=== PATIENT | female | born 1970 | race Two or more races ===

== ENCOUNTER 2020-11-19 10:27 | Day surgery (SDC) | payer OTHER ==
[~2020-11-19] VITALS: Ht 152.4 cm; Wt 113.4 kg
[~2020-11-19 10:27] MED LIST: HYZAAR 50-12.1 UDTAB PO; PRILOSEC10 MG PO
[2020-11-19] MEDS ORDERED: MELOXICAM7.5 MG PO (21:03)
[2020-11-19] MEDS ORDERED: TAMS0.4C PO (21:03)
[2020-11-19] MEDS ORDERED: LEVOFLOXACIN500 MG PO (21:04)
[2020-11-19] MEDS ORDERED: PYRIDIUM200 MG PO (21:05)
[2020-11-22] MEDS ORDERED: HYZAAR 100-251 EACH PO (15:10)
[2020-11-22] MEDS ORDERED: LEVOXYL50 MCG (15:11)
== END 2020-11-20 02:50 | disposition home or self-care (01) ==
LOC: ER 10:27 → CIR.AMB 18:47
PROVIDERS: ATTEND Surgery
DX: N20.1 Calculus of ureter (principal); Z20.822 Contact with and (suspected) exposure to COVID-19

== ENCOUNTER 2020-11-26 06:20 | Day surgery (SDC) | payer OTHER ==
[~2020-11-26 06:20] MED LIST changes: +HYZAAR 100-251 EACH PO; +LEVOFLOXACIN500 MG PO; +LEVOXYL50 MCG; +MELOXICAM7.5 MG PO; +PYRIDIUM200 MG PO; +TAMS0.4C PO
[2020-11-26] MEDS ORDERED: LEVOFLOXACIN500 MG PO (11:55)
[2020-11-26] MEDS ORDERED: MELOXICAM7.5 MG PO (11:55)
[2020-11-26] MEDS ORDERED: TAMS0.4C PO (11:55)
== END 2020-11-26 16:45 | disposition home or self-care (01) ==
LOC: CIR.AMB 06:20
PROVIDERS: ATTEND Surgery
DX: N20.1 Calculus of ureter (principal); Z20.822 Contact with and (suspected) exposure to COVID-19

== ENCOUNTER 2021-09-10 11:11 | Emergency (ER) | payer OTHER ==
[~2021-09-10] VITALS: Ht 154.9 cm; Wt 111.1 kg
[2021-09-10] MEDS ORDERED: SINGULAIR 10MG10 MG PO (11:33)
[2021-09-10] MEDS ORDERED: TOPROL XL25 M1 PO (11:33)
[2021-09-10] MEDS ORDERED: KETO10TA2 PO (15:40)
[2021-09-10] MEDS ORDERED: NORFLEX100MG PO (15:40)
== END 2021-09-10 18:09 | disposition home or self-care (01) ==
LOC: ER 11:11
DX: R00.2 Palpitations (principal); R41.9 Unspecified symptoms and signs involving cognitive functions and awareness; R07.9 Chest pain, unspecified